=== PATIENT | female | born 1985 | race African-American/Black ===

== ENCOUNTER 2018-11-25 11:33 | Emergency (ER) | payer BC, MEDICAID ==
[~2018-11-25] VITALS: Wt 78.0 kg
[2018-11-25 11:36] VITALS: BP 127/78; PULSE 78; RESP 18
[2018-11-25] MEDS ORDERED: KETOROLAC 60 MG INJ IM STA (12:35)
--- NOTE | 2018-11-25 12:40 | ERD ---
ER Documentation Chief Complaint Chief Complaint FELL 2 DAYS AGO HAS RIGHT HAND PAIN/INJURY HPI Patient is a 33 years old female with no known past medical history presenting to the clinic with severe right hand pain since 2 days ago. Patient reports being in a house constitution party intoxicated when she excellently slipped and fell onto her right hand. Patient reports using OTC naproxen with resolution of pain and swelling, however Patient states that the pain has gotten worse as of today. Patient reports the swelling has gone down however still persistent. Patient states the pain is worse with movement of her hand and is worse on the third and fourth digit to the Metacarpal bones. Patient denies . ROS All systems reviewed and are negative except as per history of present illness. Medications Home Meds Active Scripts Meloxicam* (Meloxicam*) 7.5 Mg Tablet, 7.5 MG PO DAILY, #30 TAB Prov:KARRIE TORRES PA-C 11/25/18 Hydrocodone/Acetaminophen ([place] 5-325 Tablet) 1 Each Tablet, 1 TAB PO Q6H PRN f or PAIN, #7 TAB Prov:KARRIE TORRES PA-C 11/25/18 Allergies Allergies: Coded Allergies: No Known Allergy (Unverified , 11/25/18) PMhx/Soc Patient admits to smoking marijuana. Medical and Surgical Hx: pt denies Medical Hx, pt denies Surgical Hx History of Surgery: No Anesthesia Reaction: No Hx Neurological Disorder: No Hx Respiratory Disorders: No Hx Cardiac Disorders: No Hx Psychiatric Problems: No Hx Miscellaneous Medical Probl: No Hx Alcohol Use: Yes Hx Substance Use: Yes Hx Tobacco Use: No Smoking Status: Never smoker FmHx Family History: No diabetes, No coronary disease, No other Physical Exam Vitals Vital Signs Date Temp Pulse Resp B/P (MAP) Pulse Ox O2 O2 Flow FiO2 Time Delivery Rate 11/25/18 97.9 78 18 127/78 99 11:36 (94) Physical Exam Const: No acute distress Head: Atraumatic Eyes: Normal Conjunctiva Neur: Awake and alert Psych: Normal Mood and Affect Right Hand Exam: Tenderness to palpation right fourth and fifth digit to 4th & 5th metacarpal bone. Diffuse swelling on right hand. Results 24 hrs Laboratory Tests Test 11/25/18 12:52 POC Beta HCG, Qualitative NEGATIVE Current Medications Medications Dose Sig/Ramiro Start Time Status Last (Trade) Ordered Route PRN Stop Time Admin Dose Reason Admin Ketorolac 60 mg ONCE STAT 11/25/18 DC 11/25/18 Tromethamine IM 12:35 12:57 (Toradol) 11/25/18 12:37 Procedures/MDM Patient was seen and evaluated for possible fracture of right hand. Right hand x-ray revealed fracture of the right fifth metacarpal with significant volar angulation of the distal fracture fragment. Patient was given a ulnar gutter splint and was referred to orthopedic. It was not given for today's visit as patient is driving back home. patient was discharged with an arm sling. Patient was informed to follow-up with customer resolution specialist as soon as possible. Departure Diagnosis: Primary Impression: Fracture of finger of right hand Encounter type: initial encounter Finger: little finger Fracture type: closed Phalanx: middle Fracture alignment: nondisplaced Qualified Codes: S62.656A - Nondisplaced fracture of middle phalanx of right little finger, initial encounter for closed fracture Condition: Stable Referrals: [facility] Additional Instructions: Patient advised to return to the ED immediately for new or worsening symptoms. Patient advised to follow up with primary care provider in the next 24-48 hours. Patient verbalized understanding and agrees with treatment plan and course of action. If patient has no primary care they may follow up with [facility] [address] [place] [address] or [facility] [id number] [place] [address] or [facility] [address] [place] [address] KARRIE TORRES PA-C November 25, 2018 12:40
[2018-11-25] MEDS ORDERED: HYDR-4011 PO (14:05)
[2018-11-25] MEDS ORDERED: MELO7.5T38 PO (14:05)
== END 2018-11-25 14:27 | disposition home or self-care (01) ==
LOC: FTE 11:33
DX: S62.656A Nondisplaced fracture of middle phalanx of right little finger, initial encounter for closed fracture (principal); W01.0XXA Fall on same level from slipping, tripping and stumbling without subsequent striking against object, initial encounter; Y92.009 Unspecified place in unspecified non-institutional (private) residence as the place of occurrence of the external cause
CPT/HCPCS: 73130; 81025; 96372; J1885; Z7502